=== PATIENT | male | born 1945 | race Caucasian/White ===

== ENCOUNTER → 2016-12-08 | Outpatient (CLI) | payer BC ==
[~2016-12-08] MED LIST: ACET1TAB84 PO; CHOL2000 PO; CIPR-255 PO; FLAX12003 PO; GLUCTAB7 PO; IBUP-1050 PO; LEVO150T PO; LOSA50TA36 PO; ROSU5TAB PO
== END | disposition home or self-care (01) ==
LOC: C.LABPBG 14:31
PROVIDERS: ATTEND Physician Assistant Medical
DX: Z00.00 Encounter for general adult medical examination without abnormal findings (principal); N40.1 Benign prostatic hyperplasia with lower urinary tract symptoms

== ENCOUNTER → 2017-11-16 | Outpatient (CLI) | payer BC | END | disposition home or self-care (01) | LOC: C.LABPBG 13:55 | PROVIDERS: ATTEND Urology | DX: Z00.00 Encounter for general adult medical examination without abnormal findings (principal) ==